=== PATIENT | female | born 1960 | race Caucasian/White ===

== ENCOUNTER → 2016-08-14 | Outpatient (CLI) | payer BC | LOC: RAD 13:31 | PROVIDERS: ATTEND Nurse Practitioner Family | DX: R60.0 Localized edema (principal); R06.02 Shortness of breath | CPT/HCPCS: 93306 ==

== ENCOUNTER → 2016-09-08 | Outpatient (CLI) | payer BC ==
--- NOTE | 2016-09-08 09:47 | RAD ---
HISTORY: Upper back pain Study: 3 views of the thoracic spine. Comparison: None Findings: Grossly normal alignment of the thoracic spine. The disk space height is maintained. Vertebral body heights are grossly maintained. IMPRESSION: 1. Unremarkable examination of the thoracic spine. Reported By:
== END ==
LOC: RAD 09:17
PROVIDERS: ATTEND Nurse Practitioner Family
DX: M54.6 Pain in thoracic spine (principal)
CPT/HCPCS: 72072